=== PATIENT | female | born 1950 | race Caucasian/White ===

== ENCOUNTER 2017-10-12 21:49 | Emergency (ER) | payer MEDICARE, OTHER ==
[2017-10-12 21:55] VITALS: BP 161/71; PULSE 80; RESP 20; TEMP 98.3; O2SAT 95
[2017-10-12] MEDS ORDERED: XARE20TA PO (22:19)
[2017-10-12] MEDS ORDERED: DIOV80TA4 PO (22:19)
[2017-10-13 00:02] VITALS: BP 140/63; PULSE 56; RESP 16; O2SAT 97
[2017-10-13 00:06] LABS: BILIRUBIN, URINE NEG (NEG); BLOOD, URINE SMALL (NEG); GLUCOSE,URINE NEG (NEG); KETONE, URINE NEG (NEG); NITRITE,URINE NEG (NEG); URINE LEUKOCYTE ESTERASE LARGE (NEG)
[2017-10-13 00:09] LABS: BASOPHIL # 0.1 TH/MM3 (0-0.2); BASOPHIL % 1.1 % (0.0-2.0); EOSINOPHIL # 0.3 TH/MM3 (0-0.4); EOSINOPHIL % 2.7 % (0.0-4.0); HEMOGLOBIN 12.6 GM/DL (11.6-15.3); LYMPHOCYTE # 3.1 TH/MM3 (1.0-4.8); MEAN CELL VOLUME 86.2 FL (80.0-100.0); MEAN CORPUSCULAR HEMOGLOBIN 29.3 PG (27.0-34.0); MEAN PLATELET VOLUME 8.8 FL (7.0-11.0); MONO % 5.5 % (0.0-8.0); MONOCYTE # 0.6 TH/MM3 (0-0.9); NEUT % 62.7 % (16.0-70.0); PLATELET COUNT 280 TH/MM3 (150-450); RED BLOOD COUNT 4.29 MIL/MM3 (4.00-5.30); RED CELL DISTRIBUTION WIDTH 12.8 % (11.6-17.2); WHITE BLOOD COUNT 11.1 TH/MM3 (4.0-11.0)
[2017-10-13 00:10] LABS: URINE COLOR YELLOW (YELLW/STRAW)
[2017-10-13 00:12] LABS: BACTERIA, URINE OCC /hpf
[2017-10-13 00:17] LABS: BICARBONATE 27.9 MEQ/L (21.0-32.0); CALCIUM 8.4 MG/DL (8.5-10.1)
[2017-10-13 00:21] LABS: CREATININE 0.57 MG/DL (0.50-1.00)
[2017-10-13] MEDS ORDERED: cefTRIAXone INJ 1,000 MG in SODIUM CHLORIDE 0.9% INJ 100 ML IV ONE (00:30)
[2017-10-13] MEDS ORDERED: FAMOTIDINE 20 MG/2 ML VIAL IV PUSH ONE (00:45)
[2017-10-13] MEDS ORDERED: MACR100C2 PO (00:59)
--- NOTE | 2017-10-13 00:59 | PD ---
HPI Chief Complaint: Skin Problem Time Seen by Provider: 23:11 Travel History International Travel<30 days: No Contact w/Intl Traveler<30days: No Traveled to known affect area: No History of Present Illness HPI 67-year-old female presents to the emergency department for progressive rash over the last several days affecting the extremities and sparing the trunk. Patient reports she has recently been on multiple medications since the beginning of August. Patient has been treated for influenza, respiratory illness with azithromycin, and more recently with Cipro for UTI. Patient states she called the clinic she had her urine specimen collected and was told that her urinary tract infection had resolved and that her urine was clear. Patient is noted fever without chills. Patient is noted pruritic rash to the lower extremities and to a lesser extent the upper extremities. Patient states various stages of healing she thinks some have small blisters and others have scabs. Patient does not know her status as far as childhood diseases or if she had chickenpox. Patient denies any sinus pressure drainage sore throat earache headache neck stiffness cough congestion pleuritic chest pain or chest pain. Patient takes Xarelto for protein S deficiency and previous history of pulmonary embolism. Patient states she has been taking her medication as prescribed. Patient is also prescribed medicine for hypertension. Patient reports she is completed all medications for influenza and respiratory illness and UTI and is no longer taking any antibiotics. Patient does not report any nausea vomiting diarrhea explosive diarrhea or mucoid bloody stools. Patient has had no abdominal pain. Patient also denies any dysuria frequency urgency hematuria or flank pain. Patient is here visiting and has [facility] with various linens, foods, carpeting, furniture, bedding, soaps, shampoos, lotions, and recent multiple medications. [facility] Past Medical History Narrative Medical Protein S deficiency, PE, hypertension; tonsillectomy; no tobacco use; nursing notes reviewed Hx Anticoagulant Therapy: Yes (XERALTO) Blood Disorders: Yes (S protein deficiency) Diminished Hearing: No Hypertension: Yes Tetanus Vaccination: < 5 Years Influenza Vaccination: Yes ?: Not Past Surgical History Tonsillectomy: Yes Social History Alcohol Use: No Tobacco Use: No Substance Use: No Allergies-Medications (Allergen,Severity, Reaction): Coded Allergies: No Known Allergies (Unverified , 10/12/17) Reported Meds & Prescriptions Reported Meds & Active Scripts Active Reported Diovan (Valsartan) 80 Mg Tab 80 Mg PO DAILY Xarelto (Rivaroxaban) 20 Mg Tab 20 Mg PO DAILY Review of Systems Except as stated in HPI: all other systems reviewed are Neg General / Constitutional: Positive: Fever, No: Chills HENT: No: Sore Throat, Congestion Cardiovascular: No: Chest Pain or Discomfort Respiratory: No: Cough, Shortness of Breath Gastrointestinal: No: Nausea, Vomiting, Diarrhea, Abdominal Pain Genitourinary: No: Dysuria, Decreased Urinary Output Musculoskeletal: No: Myalgias, Arthralgias Skin: Positive Rash, Positive Itching, Positive Dryness, No Hives Neurologic: No: Weakness, Dizziness, Syncope Psychiatric: No: Anxiety, Depression Hematologic/Lymphatic: No: Easy Bruising Physical Exam Narrative GENERAL: Well-developed well-nourished female in no acute distress or respiratory distress SKIN: Warm and dry. No petechiae no purpura erythematous papular rash with few areas of excoriation with scabs in place no obvious vesicles no pustules. HEAD: Normocephalic. EYES: No scleral icterus. No injection or drainage. ENT: Mucous membranes moist airways patent. NECK: Supple, trachea midline. No JVD or lymphadenopathy. No meningismus no nuchal rigidity. CARDIOVASCULAR: Regular rate and rhythm without murmurs, gallops, or rubs. RESPIRATORY: Breath sounds equal bilaterally. No accessory muscle use. GASTROINTESTINAL: Abdomen soft, non-tender, nondistended. MUSCULOSKELETAL: No cyanosis, or edema. BACK: Nontender without obvious deformity. No CVA tenderness. Data Data Last Documented VS Vital Signs Date Time Temp Pulse Resp B/P (MAP) Pulse Ox O2 Delivery O2 Flow Rate FiO2 10/13/17 00:02 56 16 140/63 (88) 97 Room Air 10/12/17 21:55 98.3 Orders Orders Complete Blood Count With Diff (10/12/17 23:11) Basic Metabolic Panel (Bmp) (10/12/17 23:11) Blood Culture (10/12/17 23:11) Lactic Acid (10/12/17 23:11) Urinalysis - C+S If Indicated (10/12/17 23:11) Urine Culture (10/12/17 23:51) Ceftriaxone Inj (Rocephin Inj) (10/13/17 00:30) Famotidine Inj (Pepcid Inj) (10/13/17 00:45) Ed Discharge Order (10/13/17 00:48) Labs Laboratory Tests Test 10/12/17 23:51 White Blood Count 11.1 TH/MM3 Red Blood Count 4.29 MIL/MM3 Hemoglobin 12.6 GM/DL Hematocrit 37.0 % Mean Corpuscular Volume 86.2 FL Mean Corpuscular Hemoglobin 29.3 PG Mean Corpuscular Hemoglobin Concent 34.0 % Red Cell Distribution Width 12.8 % Platelet Count 280 TH/MM3 Mean Platelet Volume 8.8 FL Neutrophils (%) (Auto) 62.7 % Lymphocytes (%) (Auto) 28.0 % Monocytes (%) (Auto) 5.5 % Eosinophils (%) (Auto) 2.7 % Basophils (%) (Auto) 1.1 % Neutrophils # (Auto) 7.0 TH/MM3 Lymphocytes # (Auto) 3.1 TH/MM3 Monocytes # (Auto) 0.6 TH/MM3 Eosinophils # (Auto) 0.3 TH/MM3 Basophils # (Auto) 0.1 TH/MM3 CBC Comment DIFF FINAL Differential Comment Urine Color YELLOW Urine Turbidity CLEAR Urine pH 6.0 Urine Specific [place] 1.015 Urine Protein NEG mg/dL Urine Glucose (UA) NEG mg/dL Urine Ketones NEG mg/dL Urine Occult Blood SMALL Urine Nitrite NEG Urine Bilirubin NEG Urine Leukocyte Esterase LARGE Urine RBC 4-9 /hpf Urine WBC 20-24 /hpf Urine Bacteria OCC /hpf Microscopic Urinalysis Comment CULTURE INDICATED Blood Urea Nitrogen 14 MG/DL Creatinine 0.57 MG/DL Random Glucose 100 MG/DL Calcium Level 8.4 MG/DL Sodium Level 139 MEQ/L Potassium Level 3.6 MEQ/L Chloride Level 105 MEQ/L Carbon Dioxide Level 27.9 MEQ/L Anion Gap 6 MEQ/L Estimat Glomerular Filtration Rate 106 ML/MIN Lactic Acid Level 1.0 mmol/L [facility] Medical Decision Making Medical Screen Exam Complete: Yes Emergency Medical Condition: Yes Medical Record Reviewed: Yes Interpretation(s) CBC & BMP Diagram 10/12/17 23:51 Calcium Level 8.4 L Vital Signs Date Time Temp Pulse Resp B/P (MAP) Pulse Ox O2 Delivery O2 Flow Rate FiO2 10/13/17 00:02 56 16 140/63 (88) 97 Room Air 10/12/17 22:12 16 2/21/18 21:55 98.3 80 20 161/71 (101) 95 Urinalysis: Positive white blood cells leukocyte esterase bacteria; culture indicated Differential Diagnosis Allergic versus contact versus infectious dermatitis, viral syndrome, adverse medication reaction, UTI, pneumonia, sepsis; also consider varicella rash Narrative Course Specimens collected and sent for resulting White cell count is normal without left shift chemistries are grossly normal range urinalysis is abnormal with bacteria white cells and leukocyte esterase cultures indicated; patient administered Rocephin 1 g IV piggyback For her pruritic rash patient given Pepcid 20 mg IV Patient is stable for outpatient management she is encouraged to monitor her temperature every 4 hours with a thermometer and take as needed acetaminophen/ Tylenol for fever 100.4F or greater; patient is also encouraged to use Zantac 150 twice daily for 7 days for pruritic rash as well as Benadryl as needed for rash or pruritus. Patient is encouraged to complete course of antibiotic as prescribed for UTI. Patient is return to emergency department for any concerns or change in condition. Patient should avoid public arena for the next several days until rash is better controlled and fever is resolved. Diagnosis Primary Impression: UTI (urinary tract infection) Additional Impression: Acute dermatitis Referrals: Primary Care Physician call for appointment Patient Instructions: General Instructions Additional Instructions: Increase fluid hydration Take [id number] Zantac 150 twice daily for 7 days Take Benadryl 25-50 mg every 4-6 hours as needed for rash/itching Complete course of antibiotic as prescribed Monitor temperature every 4 hours with a thermometer and take acetaminophen/ Tylenol every 4 hours for fever 100.4F or greater Med/Other Pt SpecificInfo: Prescription(s) given Scripts Nitrofurantoin Monohydrate Macrocrystals (Macrobid) 100 Mg Cap 100 MG PO BID for Infection for 10 Days, #20 CAP 0 Refills Prov: Lesly Vieyra MD 10/13/17 Disposition: 01 DISCHARGE HOME Condition: Stable Lesly Vieyra MD Oct 13, 2017 00:59
[2017-10-13 01:29] VITALS: BP 135/59
== END 2017-10-13 01:39 | disposition home or self-care (01) ==
LOC: PHED 21:49
DX: N39.0 Urinary tract infection, site not specified (principal); L30.9 Dermatitis, unspecified; I10 Essential (primary) hypertension; Z86.711 Personal history of pulmonary embolism; Z79.01 Long term (current) use of anticoagulants
CPT/HCPCS: 80048; 81001; 83605; 85025; 87040; 87086; 96365; 96375; 99283; J0696